=== PATIENT | female | born 1995 | race Two or more races ===

== ENCOUNTER 2017-04-21 16:58 | Emergency (ER) | payer OTHER ==
[~2017-04-21] VITALS: Ht 162.6 cm; Wt 84.4 kg
[2017-04-21 17:05] VITALS: BP 114/68
== END 2017-04-21 18:51 | disposition left against medical advice (07) ==
LOC: ER 17:03
DX: S09.90XA Unspecified injury of head, initial encounter (principal); Z53.21 Procedure and treatment not carried out due to patient leaving prior to being seen by health care provider; W10.9XXA Fall (on) (from) unspecified stairs and steps, initial encounter; Y93.89 Activity, other specified; Y99.8 Other external cause status; Y92.89 Other specified places as the place of occurrence of the external cause